=== PATIENT | female | born 1955 | race African-American/Black ===

== ENCOUNTER 2021-12-16 13:26 | Emergency (ER) | payer MEDICARE, OTHER ==
[~2021-12-16] VITALS: Ht 175.3 cm; Wt 58.1 kg
[2021-12-16 13:44] VITALS: BP 138/67
[2021-12-16] MEDS ORDERED: IBUPROFEN 600 MG TABLET ONE (15:14)
[2021-12-16] MEDS ORDERED: TDAP [DIPH/PERTUSSIS/TET] 0.5 ML VIAL IM ONE ×2 (15:14→15:30)
[2021-12-16] MEDS ORDERED: IBUPROFEN 600 MG TABLET PO ONE (15:30)
--- NOTE | 2021-12-16 17:26 | NUR ---
apa called, eta 60- 75 mins.
--- NOTE | 2021-12-16 18:52 | NUR ---
triied calling four seasons, was placed on a long hold. pt discharge. stable condition.
== END 2021-12-16 18:53 | disposition home or self-care (01) ==
LOC: ER 13:30
DX: S90.122A Contusion of left lesser toe(s) without damage to nail, initial encounter (principal); S80.211A Abrasion, right knee, initial encounter; M25.561 Pain in right knee; W01.0XXA Fall on same level from slipping, tripping and stumbling without subsequent striking against object, initial encounter; Y93.89 Activity, other specified; Y92.89 Other specified places as the place of occurrence of the external cause; Y99.8 Other external cause status
CPT/HCPCS: 73564-TC; 73630-TC; 90715